=== PATIENT | female | born 1960 | race Caucasian/White ===

== ENCOUNTER 2016-03-10 11:23 | Emergency (ER) | payer OTHER ==
[~2016-03-10] VITALS: Ht 162.6 cm; Wt 101.3 kg
[~2016-03-10 11:23] MED LIST: ADVAIR 100/501 DISK IH; ALDACTONE100 MG PO; CLARINEX5 MG PO; Catapres PO; LYRICA75 MG PO; NASONEX17 GM NS; NEXIUM20 MG PO; SYNTHROID50 MCG PO; TOPIRAMATE25 MG PO; TRAMADOL HCL50 MG PO; TRAZODONE HCL50 MG PO; VENLAFAXINE HC150 M1 PO; WELLBUTRIN75 MG PO
[2016-03-10] MEDS ORDERED: PREDNISONE50 MG PO (14:03)
[2016-03-10 14:36] VITALS: BP 130/78
== END 2016-03-10 14:37 | disposition home or self-care (01) ==
LOC: EME 11:23
DX: T50.8X5A Adverse effect of diagnostic agents, initial encounter (principal); R21 Rash and other nonspecific skin eruption; L29.9 Pruritus, unspecified; J45.909 Unspecified asthma, uncomplicated; G89.29 Other chronic pain; M79.7 Fibromyalgia; I10 Essential (primary) hypertension; K21.9 Gastro-esophageal reflux disease without esophagitis; E03.9 Hypothyroidism, unspecified; Z86.718 Personal history of other venous thrombosis and embolism
CPT/HCPCS: 99281; 99284; J7512